=== PATIENT | female | born 1980 | race Caucasian/White ===

== ENCOUNTER 2017-07-02 22:59 | Emergency (ER) | payer OTHER ==
[~2017-07-02 22:59] MED LIST: COLACE 100MG C100 MG PO; NORCO 5-325 TA1 EACH PO
[2017-07-03 01:04] LABS: HEMOGLOBIN 11.9 gm/dl (12.3-15.3); RED BLOOD COUNT 4.3 M/UL (4.00-5.10); WHITE BLOOD COUNT 9.4 K/UL (4.5-11.0)
[2017-07-03 01:20] LABS: BUN/CREATININE RATIO 19 (0-10)
== END 2017-07-03 03:35 | disposition home or self-care (01) ==
LOC: ER1 22:59
PROVIDERS: Physician Assistant
DX: K80.70 Calculus of gallbladder and bile duct without cholecystitis without obstruction (principal); I25.2 Old myocardial infarction; F17.210 Nicotine dependence, cigarettes, uncomplicated; Z91.040 Latex allergy status
CPT/HCPCS: 36415; 80053; 81001; 82150; 83690; 84703; 85025; 96361; 96374; 96375; 96376; 99284; J2270; J2405; J7050; Q9962